=== PATIENT | male | born 1960 | race Two or more races ===

== ENCOUNTER 2024-12-21 11:50 | Day surgery (SDC) | payer MEDICAID, SELFPAY ==
[2024-12-20 13:44] VITALS: BMI 25.1
[2024-12-21] VITALS (11 sets, daily range): BP systolic 113–162; BP diastolic 66–89; PULSE 58–69; RESP 11–17; TEMP 36.7–36.8; O2SAT 93–99; BMI 25.7
[2024-12-21] MEDS: RINGERS LACTATED 1000 ML 1,000 ML 100 ML IV (13:16)
[2024-12-21] MEDS: fentaNYL CIT INJ 50 mCg/ML AMP 2ML (ASD USE ONLY) IV (13:24)
[2024-12-21] MEDS: MIDAZOLAM INJ 1 MG/ML VIAL 2 ML (ASD USE ONLY) 2 MG IV (13:26)
== END 2024-12-21 14:20 | disposition home or self-care (01) ==
LOC: SASD 13:52
PROVIDERS: Referring Provider Surgery; Visit Provider Surgery
PROC: 0DBE8ZX Excision of Large Intestine, Via Natural or Artificial Opening Endoscopic, Diagnostic (ICD-10-PCS; CPT 45380; principal; 2024-12-21 13:45)
DX: Z12.11 Encounter for screening for malignant neoplasm of colon (principal)
CPT/HCPCS: 45378; A4217; J2250; J3010; J7120